=== PATIENT | female | born 1955 | race Caucasian/White ===

== ENCOUNTER 2018-04-16 15:46 | Emergency (ER) | payer OTHER, SELFPAY ==
[2018-04-16 15:58] VITALS: BP 102/39; PULSE 59; RESP 12; TEMP 36.4; O2SAT 96; BMI 34.9
[2018-04-16] MEDS: ONDANSETRON 4 MG/2 ML INJ IV (16:11)
[2018-04-16] MEDS: SODIUM CHLORIDE 0.9% 1,000 ML 1000 ML IV (16:11)
--- NOTE | 2018-04-16 16:11 | DI.RAD.S_ITS ---
PROCEDURE: XR CHEST 1V INDICATIONS: syncope / chest pain TECHNIQUE: One view of the chest was acquired. COMPARISON: None. FINDINGS: Surgical changes and devices: None. Lungs and pleura: No pleural effusions or pneumothorax. Lungs are clear. Mediastinum: Mediastinal contours appear normal. Heart size is normal. Bones and chest wall: No suspicious bony lesions. Overlying soft tissues appear unremarkable. IMPRESSION: No acute cardiopulmonary disease. Dictated by: Emiliano Parks M.D. on 04/16/2018 at 17:39 Approved by: Emiliano Parks M.D. on 04/16/2018 at 17:39
[2018-04-16 16:23] LABS: Add Manual Diff / Slide Review NO; Basophils Percent Auto 1.1 % (0-2); Eosinophils Percent Auto 2.7 % (2-4); Hematocrit 41.7 % (36-46); Hemoglobin 13.9 g/dL (12.0-16.0); Lymphocytes Percent Auto 28.5 % (25-40); Mean Corpuscular HGB Conc 33.4 % (30-36); Mean Corpuscular Hemoglobin 28.7 PG (26-34); Mean Corpuscular Volume 85.9 fL (80-100); Monocytes Percent Auto 8.7 % (3-14); Neutrophils Absolute Auto 4800 /uL (3000-5900); Platelet Count 360 X10^3/uL (150-400); Red Blood Cell Count 4.85 X10^6/uL (4.0-5.2); Red Cell Distribution Width 13.7 % (11.6-14.8); White Blood Cell Count 8.1 X10^3/uL (4.5-11.0)
[2018-04-16 16:26] LABS: D Dimer 303 ng/mL (<230)
[2018-04-16 16:27] LABS: Alanine Aminotransferase 34 IU/L (9-52); Albumin 4.3 g/dL (3.5-5.0); Albumin Globulin Ratio 1.3 (1.0-2.8); Alkaline Phosphatase 88 U/L (38-126); Aspartate Aminotransferase 35 IU/L (14-36); Bilirubin Total 0.6 mg/dL (0.2-1.3); Blood Urea Nitrogen 17 mg/dL (7-17); Calcium 9.7 mg/dL (8.4-10.2); Carbon Dioxide 19 mmol/L (22-32); Chloride 108 mmol/L (98-107); Estimated Glomerular Filt Rate 56.4 mL/min (>60); Ethanol (ETOH) < 10 mg/dL; Globulin 3.2 g/dL (1.7-4.1); Glucose 117 mg/dL (80-110); HEMOLYSIS < 15 (0-50); Lipase 89 U/L (23-300); Potassium 3.9 mmol/L (3.4-5.1); Sodium 141 mmol/L (137-145); Total Protein 7.5 g/dL (6.3-8.2)
[2018-04-16 16:30] VITALS: BP 119/59; PULSE 61
[2018-04-16 16:38] LABS: Troponin I < 0.012 ng/mL (0.01-0.034)
--- NOTE | 2018-04-16 16:39 | DI.CT.S_ITS ---
PROCEDURE: CT ANGIO CHEST PE PROTOCOL INDICATIONS: hypotension, pre-syncope and elevated dimer TECHNIQUE: After the administration of intravenous contrast, 2 mm thick sections acquired from the pulmonary apices to the posterior costophrenic angles. 3-dimensional maximum intensity projection (MIP) coronal and sagittal reformats were then acquired through the thorax. For radiation dose reduction, the following was used: automated exposure control, adjustment of mA and/or kV according to patient size. COMPARISON: [facility], CR, XR CHEST 1V, 04/16/2018, 16:26. FINDINGS: Image quality: Excellent. Pulmonary arteries: Pulmonary arteries are normal in size, and demonstrate no intraluminal filling defects to suggest central pulmonary embolism. Lungs and pleura: Lungs are clear. No pleural effusions or pneumothorax. Central and peripheral airways are patent. Mediastinum: Heart size is normal, without pericardial effusion. No mediastinal or hilar adenopathy. Thoracic aorta is normal in caliber and enhancement. Esophagus is normal in caliber. Small hiatal hernia. Bones and chest wall: No suspicious bony lesions. Ribs and thoracic spine appear intact throughout. Thyroid gland contains a 9 mm thyroid nodule in the left thyroid lobe. No axillary or supraclavicular adenopathy. Abdomen: Visualized upper abdominal solid organs appear normal in the early arterial phase of enhancement. IMPRESSION: 1. No evidence for pulmonary embolism. 2. Small hiatal hernia. 3. A 9 mm thyroid nodule in the left thyroid lobe. Non-urgent followup ultrasound suggested Dictated by: Emiliano Parks M.D. on 04/16/2018 at 17:39 Approved by: Emiliano Parks M.D. on 04/16/2018 at 17:43
[2018-04-16 17:45] VITALS: BP 125/56; PULSE 65; O2SAT 100
--- NOTE | 2018-04-16 18:15 | ED.DIZZY ---
HPI - Dizziness General Chief Complaint: Syncope Stated Complaint: Syncope History of Present Illness HPI Narrative: HPI 62 y/o female presents with sudden onset nausea, mid chest warmth, and vomiting while the patient was in the beer tent at a local [employer]. Patient reports she drink one glass of red wine. Patient denies cardiac history, patient denies diarrhea, cough, fevers, chills. M/S/F/SocHx notable for: please see HPI; remainder reviewed with patient and in chart. ROS: Negative constitutional, eye, cardiovascular, pulmonary, GI, , MSK, skin, neurologic, psychiatric, endocrine unless noted in the HPI. Exam Gen: Pleasant, non-toxic appearing, resting comfortably. HEENT: NC, AT, PEERL, EOMI. Resp: Clear to auscultation bilaterally, normal work of breathing, no accessory muscle usage. Card: Regular rate and rhythm with no murmurs, rubs, or gallops, extremities warm and well perfused. GI: Non-tender to palpation throughout all quadrants, no focal tenderness at McBurney's point, negative Abreu's sign, non-distended, no rebound or guarding. : No suprapubic tenderness to palpation. MSK: No visible deformities, strength and tone without visually appreciable deficit. Skin: Normal color with no visible lesions. Neuro: AO x 3, no facial asymmetry, vision and hearing WNL. Psych: Mood and affect appropriate. Labs / Imaging: EKG: SR at [address]-segment elevations or depressions, T-wave inversions or new LBBB. FL interval 176 msec, QTc 470 msec, no delta waves, epsilon waves, coved or saddle ST-segment changes in leads V1-3, preseptal or inferior lead Q-waves, biphasic P-waves, or T-wave inversions; no LVH. WBC 8.1, Hb 13.9, d-dimer 303, Na 141, K 3.9, glucose 117, total bilirubin 0.6, AST 35, ALT 34, ALP 88, lipase 89, troponin <0.012, EtOH less than 10. CTA chest: no evidence for pulmonary embolism. Small hiatal hernia. A 9 mm thyroid nodule in the left thyroid lobe. Non-urgent follow-up ultrasound suggested. MDM Previous chart, nursing note, labs, imaging, and vitals reviewed. A: 62 y/o female presents with sudden onset nausea, mid chest warmth, and vomiting while the patient was in the beer tent at a local [employer]. DDx and evaluation: * Anemia - Hemoglobin clinically within normal limits. * Cardiac - EKG labs and history without evidence of ACS, AV-block, WPW syndrome, Brugada syndrome, HCM, Long or Short QT-syndrome, or arrhythmogenic RV dysplasia. Heart sounds WNL on exam, no evidence of valvular abnormalities by history or auscultation. However, the time of patient care transfer to a repeat troponin is pending. * Obstructive - negative imaging * Vascular - As there are no identifiable risk factors on history (injury risk factors, vertiginous symptoms, diplopia, vision changes, TIA risk factors or prior similar events) further evaluation of a possible vertebrobasilar insufficiency. Furthermore, as the patient denies neck pain, recent neck trauma, and there is no evidence of a partial Yuridia's syndrome, a carotid or vertebral dissection is felt to be unlikely and imaging is not indicated. Similarly, the absence of focal arm symptoms and symmetric perfusion of the upper extremities effectively excludes emergent evaluation of any possible subclavian steal syndrome. Lastly, given the absence of chest pain aortic dissection further evaluation of any possible dissection is not warranted. * Electrolyte - Electrolytes clinically within normal limits. * Hypotension (hypovolemia vs vasovagal vs autonomic instability) - patient given 1 L normal saline with improvement in symptoms. Vasovagal/dehydration cannot be fully excluded. * MARKETING BUDGET ANALYST (CVA/TIA/Mass) - given the absence of headache, absence of reported transient symptoms c/w a TIA and the absence of a focal neurological deficit, further evaluation, including imaging is not currently warranted. * Seizure - given the absence of reported seizure history and a presentation today atypical for a seizure strongly doubt that this was the cause of the patient's event. * AAA - patient without any abdominal, groin, back or flank pain on history or exam, as such no further evaluation of this possible etiology is currently indicated. * Gastroenteritis - patient may have early viral nausea/vomiting syndrome. ED Course: 1 L normal saline and 4 mg Zofran given, patient with improvement symptoms. Repeat troponin pending as well as repeat evaluation at time of patient care transfer to the overnight provider. Impression: nausea, hypotension Related Data Allergies Allergy/AdvReac Type Severity Reaction Status Date / Time No Known Drug Allergies Allergy Verified 04/16/18 16:11 [facility] Medical History Asthma (Acute) Social History Smoking Status: Never smoker Exam Initial Vital Signs Initial Vital Signs: Vital Signs Temperature 97.5 F L 04/16/18 15:58 Pulse Rate 59 L 04/16/18 15:58 Respiratory Rate 12 04/16/18 15:58 Blood Pressure 102/39 L 04/16/18 15:58 Pulse Oximetry 96 04/16/18 15:58 Course Orders Ordered: ED Orders 04/16/18 16:11 XR chest 1V Stat EKG-12 Lead Stat 04/16/18 16:39 CT angio chest PE protocol Stat 04/16/18 18:14 Troponin I Stat Discontinued Medications Sodium Chloride (Normal Saline 0.9%) 1,000 mls @ 1,000 mls/hr IV BOLUS ONE Stop: 04/16/18 17:03 Last Infusion: 04/16/18 17:34 Dose: 0 mls/hr Admin: 04/16/18 16:11 Dose: 1,000 mls/hr Ondansetron HCl (Zofran) 4 mg IV NOW ONE Stop: 04/16/18 16:05 Last Admin: 04/16/18 16:11 Dose: 4 mg Vital Signs - 8 hr 04/16/18 15:58 04/16/18 16:30 04/16/18 17:45 Temperature 97.5 F L Pulse Rate 59 L 61 65 Respiratory Rate 12 Blood Pressure 102/39 L Blood Pressure [Left Arm] 119/59 L 125/56 H Pulse Oximetry 96 100 MDM - Dizziness Lab Data Result diagrams: 04/16/18 Unknown 04/16/18 Unknown Lab Results 04/16/18 04/16/18 04/16/18 Range/Units Unknown Unknown Unknown WBC 8.1 (4.5-11.0) X10^3/uL RBC 4.85 (4.0-5.2) X10^6/uL Hgb 13.9 (12.0-16.0) g/dL Hct 41.7 (36-46) % MCV 85.9 (80-100) fL MCH 28.7 (26-34) PG MCHC 33.4 (30-36) % RDW 13.7 (11.6-14.8) % Plt Count 360 (150-400) X10^3/uL Neut % (Auto) 59.0 (50-75) % Lymph % (Auto) 28.5 (25-40) % [place] % (Auto) 8.7 (3-14) % Eos % (Auto) 2.7 (2-4) % Baso % (Auto) 1.1 (0-2) % Neut # (Auto) 4800 (6680-6189) /uL D-Dimer 303 H (<230) ng/mL Sodium 141 (137-145) mmol/L Potassium 3.9 (3.4-5.1) mmol/L Chloride 108 H (98-107) mmol/L Carbon Dioxide 19 L (22-32) mmol/L BUN 17 (7-17) mg/dL Creatinine 1.00 (0.52-1.04) mg/dL Estimated GFR 56.4 L (>60) mL/min BUN/Creatinine Ratio 17.0 (6-22) Glucose 117 H (80-110) mg/dL Calcium 9.7 (8.4-10.2) mg/dL Total Bilirubin 0.6 (0.2-1.3) mg/dL AST 35 (14-36) IU/L ALT 34 (9-52) IU/L Alkaline Phosphatase 88 (38-126) U/L Troponin I < 0.012 (0.01-0.034) ng/mL Total Protein 7.5 (6.3-8.2) g/dL Albumin 4.3 (3.5-5.0) g/dL Globulin 3.2 (1.7-4.1) g/dL Albumin/Globulin Ratio 1.3 (1.0-2.8) Lipase 89 (23-300) U/L Ethyl Alcohol < 10 mg/dL
[2018-04-16 18:30] VITALS: BP 141/76; PULSE 61; RESP 15; O2SAT 100
[2018-04-16 19:02] LABS: Troponin I < 0.012 ng/mL (0.01-0.034)
[2018-04-16] MEDS: ONDANSETRON 4 MG ODT PREPACK 1 BOTTLE MISC (19:29)
[2018-04-16 19:30] VITALS: BP 140/75; PULSE 60; RESP 20; O2SAT 96
== END 2018-04-16 19:32 | disposition home or self-care (01) ==
PROVIDERS: Emergency Provider Emergency Medicine
DX: I95.9 Hypotension, unspecified (principal); R11.0 Nausea
CPT/HCPCS: 36415; 36591; 71045; 71275; 80053; 80320; 83690; 84484; 85025; 85379; 93005; 93010; 93041; 96361; 96374; 99284; 99285; J2405; Q9967